=== PATIENT | female | born 1965 | race African-American/Black ===

== ENCOUNTER 2019-10-03 20:08 | Emergency (ER) | payer MEDICAID ==
[~2019-10-03] VITALS: Ht 172.7 cm; Wt 78.5 kg
[2019-10-03 20:23] VITALS: BP 130/78
[2019-10-03] MEDS ORDERED: DexAMETHasone SOD PHOS 10MG/1ML VIAL INJ IM ONE (21:45)
== END 2019-10-03 22:29 | disposition home or self-care (01) ==
LOC: ER 20:08
DX: J06.9 Acute upper respiratory infection, unspecified (principal)
CPT/HCPCS: 96372; 99283; J1100